=== PATIENT | male | born 1970 | race Hispanic/Latino ===

== ENCOUNTER 2019-03-08 23:44 | Emergency (ER) | payer BC ==
[2019-03-09 00:14] LABS: Basophils # (Auto) 0.1 K/mm3 (0.0-0.1); Eosinophils # (Auto) 0.1 K/mm3 (0.0-0.4); Eosinophils % (Auto) 1.7 % (0.0-4.3); Hematocrit 49.1 % (35.5-45.6); Hemoglobin 16.3 gm/dl (11.8-15.2); Lymphocytes # (Auto) 1.5 K/mm3 (1.2-5.4); Lymphocytes % (Auto) 18.6 % (13.4-35.0); Mean Corpuscular HGB Conc 33 % (32-34); Mean Corpuscular Volume 90 fl (84-94); Monocytes # (Auto) 0.5 K/mm3 (0.0-0.8); Platelet Count 250 K/mm3 (140-440); Red Blood Count 5.44 M/mm3 (3.65-5.03); Red Cell Distribution Width 13.5 % (13.2-15.2)
[2019-03-09 00:34] LABS: Albumin 5.1 g/dL (3.9-5); Calcium 10.1 mg/dL (8.4-10.2)
[2019-03-09] MEDS ORDERED: SODIUM CHLORIDE 0.9% 1000 ML 1,000 ML IV ONE (00:59)
[2019-03-09] MEDS ORDERED: HYDROmorphone 1 MG/1 ML INJ IV ONE (00:59)
[2019-03-09] MEDS ORDERED: ONDANSETRON 4 MG/2 ML INJ IV ONE (00:59)
--- NOTE | 2019-03-09 01:46 | Emergency Department Report ---
ED Abdominal Pain HPI - General Chief Complaint: Abdominal Pain Stated Complaint: RT SIDE ABD PAIN VOMITING Time Seen by Provider: 03/09/19 00:40 Source: patient Mode of arrival: Ambulatory Limitations: No Limitations - History of Present Illness Initial Comments: 48-year-old male with a past medical history of peptic ulcer disease, skin cancer treated with resection, varicocele surgery, right abdominal hernia repair as a child presents to the hospital complaints complaints of sudden onset of right lower abdominal pain. Pain was 10/10, sharp, associated nausea, vomiting, and diaphoresis. Pain is waxing and waning since 6 PM. Last urine output was 10 PM. Patient denies hematuria, dysuria, or fever. Complains of dark stools but not black stools. He has not had any coffee-ground emesis or hematemesis. Denies previous history of kidney stones. Severity scale (0 -10): 6 - Related Data Previous Rx's Medication Instructions Recorded Last Taken Type HYDROcodone/APAP 5-325 [[place] 1 each PO Q6HR PRN #25 tablet 03/09/19 Unknown Rx 5/325] Ondansetron [Zofran Odt] 4 mg PO Q8HR PRN #20 tab.rapdis 03/09/19 Unknown Rx Tamsulosin [Flomax] 0.4 mg PO QDAY #14 cap 03/09/19 Unknown Rx cephALEXin [Keflex] 500 mg PO Q6HR #28 capsule 03/09/19 Unknown Rx Allergies Allergy/AdvReac Type Severity Reaction Status Date / Time No Known Allergies Allergy Verified 03/08/19 23:49 ED Review of Systems ROS: Stated complaint: RT SIDE ABD PAIN VOMITING Other details as noted in HPI Comment: All other systems reviewed and negative ED Past Medical Hx - Past Medical History Previous Medical History?: Yes Hx of Cancer: Yes (skin removed) Additional medical history: peptic ulcers - Surgical History Past Surgical History?: Yes Additional Surgical History: skin ca. Right inguinal hernia repair as a child. Varicocele repair - Social History Smoking Status: Never Smoker Substance Use Type: None - Medications Home Medications: Home Medications Medication Instructions Recorded Confirmed Last Taken Type HYDROcodone/APAP 5-325 [[place] 1 each PO Q6HR PRN #25 tablet 03/09/19 Unknown Rx 5/325] Ondansetron [Zofran Odt] 4 mg PO Q8HR PRN #20 tab.rapdis 03/09/19 Unknown Rx Tamsulosin [Flomax] 0.4 mg PO QDAY #14 cap 03/09/19 Unknown Rx cephALEXin [Keflex] 500 mg PO Q6HR #28 capsule 03/09/19 Unknown Rx ED Physical Exam - General Limitations: No Limitations - Other Other exam information: General: No acute distress Head: Atraumatic Eyes: normal appearance ENT: Moist mucous membranes Neck: Normal appearance, no midline tenderness Chest: Clear to auscultation bilaterally CV: Regular rate and rhythm Abdomen: Soft, normal bowel sounds, mild right lower quadrant tenderness, nondistended, no rebound or guarding rectal: guaic neg brown stool Back: Normal inspection Extremity: Normal inspection infection, full range of motion, no CVA tenderness Neuro: Alert O x 3, no facial asymmetry, speech clear, no gross motor sensory deficit Psych: Appropriate behavior Skin: No rash ED Course Vital Signs 03/09/19 03/09/19 03/09/19 00:38 01:00 02:00 Temperature 96.7 F L Pulse Rate 40 L 38 L 38 L Respiratory 17 19 15 Rate Blood Pressure 129/74 121/64 Blood Pressure 139/76 [Left] O2 Sat by Pulse 100 100 99 Oximetry 03/09/19 02:31 Temperature Pulse Rate 37 L Respiratory 15 Rate Blood Pressure 124/70 Blood Pressure [Left] O2 Sat by Pulse 99 Oximetry ED Medical Decision Making - Lab Data Result diagrams: 03/08/19 23:55 03/08/19 23:55 Lab Results 03/08/19 03/08/19 03/09/19 Range/Units 23:55 23:55 01:50 WBC 8.2 (4.5-11.0) K/mm3 RBC 5.44 H (3.65-5.03) M/mm3 Hgb 16.3 H (11.8-15.2) gm/dl Hct 49.1 H (35.5-45.6) % MCV 90 (84-94) fl MCH 30 (28-32) pg MCHC 33 (32-34) % RDW 13.5 (13.2-15.2) % Plt Count 250 (140-440) K/mm3 Lymph % (Auto) 18.6 (13.4-35.0) % Green % (Auto) 6.0 (0.0-7.3) % Eos % (Auto) 1.7 (0.0-4.3) % Baso % (Auto) 1.0 (0.0-1.8) % Lymph # 1.5 (1.2-5.4) K/mm3 Green # 0.5 (0.0-0.8) K/mm3 Eos # 0.1 (0.0-0.4) K/mm3 Baso # 0.1 (0.0-0.1) K/mm3 Seg Neutrophils % 72.7 H (40.0-70.0) % Seg Neutrophils # 5.9 (1.8-7.7) K/mm3 Sodium 140 (137-145) mmol/L Potassium 3.7 (3.6-5.0) mmol/L Chloride 99.3 (98-107) mmol/L Carbon Dioxide 25 (22-30) mmol/L Anion Gap 19 mmol/L BUN 21 H (9-20) mg/dL Creatinine 1.3 (0.8-1.5) mg/dL Estimated GFR 59 ml/min BUN/Creatinine Ratio 16 % Glucose 112 H (75-100) mg/dL Calcium 10.1 (8.4-10.2) mg/dL Total Bilirubin 0.50 (0.1-1.2) mg/dL AST 29 (5-40) units/L ALT 22 (7-56) units/L Alkaline Phosphatase 68 (35-129) units/L Total Protein 7.9 (6.3-8.2) g/dL Albumin 5.1 H (3.9-5) g/dL Albumin/Globulin Ratio 1.8 % Lipase 20 (13-60) units/L Urine Color Hui (Yellow) Urine Turbidity Cloudy (Clear) Urine pH 5.0 (5.0-7.0) Ur Specific [place] 1.023 (1.003-1.030) Urine Protein 100 mg/dl (Negative) mg/dL Urine Glucose (UA) Neg (Negative) mg/dL Urine Ketones Tr (Negative) mg/dL Urine Blood Lg (Negative) Urine Nitrite Neg (Negative) Urine Bilirubin Neg (Negative) Urine Urobilinogen < 2.0 (<2.0) mg/dL Ur Leukocyte Esterase Neg (Negative) Urine WBC (Auto) 30.0 H (0.0-6.0) /HPF Urine RBC (Auto) 160.0 (0.0-6.0) /HPF U Epithel Cells (Auto) 1.0 (0-13.0) /HPF Urine Bacteria (Auto) 1+ (Negative) /HPF Calcium Oxalate Crystal Few Urine Mucus 1+ /HPF Urine Opiates Screen Urine Methadone Screen Ur Barbiturates Screen Ur Phencyclidine Scrn Ur Amphetamines Screen U Benzodiazepines Scrn Urine Cocaine Screen U Marijuana (THC) Screen Drugs of Abuse Note 03/09/19 Range/Units 01:50 WBC (4.5-11.0) K/mm3 RBC (3.65-5.03) M/mm3 Hgb (11.8-15.2) gm/dl Hct (35.5-45.6) % MCV (84-94) fl MCH (28-32) pg MCHC (32-34) % RDW (13.2-15.2) % Plt Count (140-440) K/mm3 Lymph % (Auto) (13.4-35.0) % Green % (Auto) (0.0-7.3) % Eos % (Auto) (0.0-4.3) % Baso % (Auto) (0.0-1.8) % Lymph # (1.2-5.4) K/mm3 Green # (0.0-0.8) K/mm3 Eos # (0.0-0.4) K/mm3 Baso # (0.0-0.1) K/mm3 Seg Neutrophils % (40.0-70.0) % Seg Neutrophils # (1.8-7.7) K/mm3 Sodium (137-145) mmol/L Potassium (3.6-5.0) mmol/L Chloride (98-107) mmol/L Carbon Dioxide (22-30) mmol/L Anion Gap mmol/L BUN (9-20) mg/dL Creatinine (0.8-1.5) mg/dL Estimated GFR ml/min BUN/Creatinine Ratio % Glucose (75-100) mg/dL Calcium (8.4-10.2) mg/dL Total Bilirubin (0.1-1.2) mg/dL AST (5-40) units/L ALT (7-56) units/L Alkaline Phosphatase (35-129) units/L Total Protein (6.3-8.2) g/dL Albumin (3.9-5) g/dL Albumin/Globulin Ratio % Lipase (13-60) units/L Urine Color (Yellow) Urine Turbidity (Clear) Urine pH (5.0-7.0) Ur Specific [place] (1.003-1.030) Urine Protein (Negative) mg/dL Urine Glucose (UA) (Negative) mg/dL Urine Ketones (Negative) mg/dL Urine Blood (Negative) Urine Nitrite (Negative) Urine Bilirubin (Negative) Urine Urobilinogen (<2.0) mg/dL Ur Leukocyte Esterase (Negative) Urine WBC (Auto) (0.0-6.0) /HPF Urine RBC (Auto) (0.0-6.0) /HPF U Epithel Cells (Auto) (0-13.0) /HPF Urine Bacteria (Auto) (Negative) /HPF Calcium Oxalate Crystal Urine Mucus /HPF Urine Opiates Screen Presumptive negative Urine Methadone Screen Presumptive negative Ur Barbiturates Screen Presumptive negative Ur Phencyclidine Scrn Presumptive negative Ur Amphetamines Screen Presumptive negative U Benzodiazepines Scrn Presumptive negative Urine Cocaine Screen Presumptive negative U Marijuana (THC) Screen Presumptive negative Drugs of Abuse Note Disclamer - EKG Data -: EKG Interpreted by [facility] EKG shows normal: sinus rhythm, ST-T waves (no stemi) Rate: bradycardia (39) - Radiology Data Radiology results: report reviewed (CT abdomen and pelvis: Obstructed upper right ureteral calculus 3 mm.) - Medical Decision Making Patient noted to be bradycardic. He denies lightheadedness or near syncope or medication use. EKG shows sinus bradycardia at 39 rate fluctuates between the 30s to 40s with normal blood pressure. Patient admitted to have this renal stone at the [facility] 3 mm. I informed patient's and his that the stone size is less than 5 mm so will likely pass spontaneously. Patient is however going to experience additional pain until the stone passes. Patient's urine is positive for infection and he received IV Rocephin. No signs of leukocytosis, fever, or sepsis at this point. Patient lives in [place] and is scheduled to fly out at 6 AM to [facility]. I cautioned him against traveling to another country because he is at risk for recurrent pain, vomiting, or worsening infection. If these occur patient would need to return to the hospital. Patient will also need follow-up with urology. She provided follow-up for urology here but ultimately will likely be seen in his home state. Patient will be provided a copy of labs, CT report, and CT or disc to take to his follow-up physicians also to have with him as if he decides to travel. In the meantime patient will be prescribed narcotic pain medication, nausea medication, and antibiotics. He Cannot take NSAIDs due to history of peptic ulcer disease. Patient and his may decide not to go on the trip. If this is the case they are encouraged to call their local urologist today/tomorrow to schedule an appointment within a week. - Differential Diagnosis renal colic, appendicitis, UTI Critical Care Time: No Critical care attestation.: If time is entered above; I have spent that time in minutes in the direct care of this critically ill patient, excluding procedure time. ED Disposition Clinical Impression: Renal colic on right side, UTI (urinary tract infection), Sinus bradycardia Disposition: TO HOME OR SELFCARE Is pt being admited?: No Does the pt Need Aspirin: No Condition: Stable Instructions: Urinary Tract Infection in Men (ED), Renal Colic (ED), Bradycardia (ED) Additional Instructions: Take the medication as prescribed. Follow-up with a urologist. Return if symptoms worsen as indicated by your discharge instructions. Take a copy of the results provided to your doctor for follow-up. Prescriptions: Tamsulosin [Flomax] 0.4 mg PO QDAY #14 cap cephALEXin [Keflex] 500 mg PO Q6HR #28 capsule HYDROcodone/APAP 5-325 [[place] 5/325] 1 each PO Q6HR PRN #25 tablet PRN Reason: Pain Ondansetron [Zofran Odt] 4 mg PO Q8HR PRN #20 tab.rapdis PRN Reason: Nausea And Vomiting Referrals: ISIS GARZA MD [Staff Physician] - 3-5 Days (Urology ) your, primary care doctor [Other] - 7-10 days Time of Disposition: 03:45
[2019-03-09 02:10] LABS: Bacteria,Urine 1+ /HPF (Negative); Bilirubin,Urine NEG (Negative); Blood,Urine LG (Negative); Calcium Oxalate Crystals,Urine FEW; Color,Urine Amber (Yellow); Mucus,Urine 1+ /HPF; Urobilinogen,Urine < 2.0 mg/dL (<2.0)
[2019-03-09 02:11] LABS: Amphetamine Screen,Urine PRESUMPTIVE NEGATIVE; Benzodiazepines Screen,Urine PRESUMPTIVE NEGATIVE; Cannabinoid Screen,Urine PRESUMPTIVE NEGATIVE; Cocaine Screen,Urine PRESUMPTIVE NEGATIVE; Methadone Screen,Urine PRESUMPTIVE NEGATIVE; Opiate Screen,Urine PRESUMPTIVE NEGATIVE
[2019-03-09] MEDS ORDERED: cefTRIAXone/NS 1 GM/50 ML 1 GM/50 ML BAG IV ONE (02:47)
--- NOTE | 2019-03-09 03:17 | Cat Scan Report ---
CT ABDOMEN AND PELVIS WITHOUT CONTRAST INDICATION: rlq pain, n,v CONTRAST: Without IV COMPARISON: None available. All CT scans at this location are performed using CT dose reduction for ALARA by means of automated e xposure control. FINDINGS: Lung bases are clear. No pneumoperitoneum is seen. Liver is mildly enlarged and has a lengt h of 19.3 cm. Several tiny probable cysts are seen in the liver. Spleen appears within normal limits. No other masses are seen. No evidence of bowel obstruction is noted. Appendix appears within normal. Gallbladder and bile ducts show no abnormalities. Pancreas shows no abnormalities. No free fluid is seen. No inflammatory changes are noted. No lymphadenopathy is seen. No renal calculi are seen. The right renal collecting system is moderately prominent and mild edema i s seen medially in the area of the renal pelvis and upper ureter. In the upper right ureter just belo w the ureteropelvic junction a 3 mm obstructing calculus is noted. IMPRESSION: Obstructing upper right ureteral calculus Signer Name: Art Moyer MD Signed: 03/09/2019 3:13 AM Workstation Name: [id number]
[2019-03-09 05:11] VITALS: BP 119/65
== END 2019-03-09 04:00 | disposition home or self-care (01) ==
LOC: ED 23:44
DX: N39.0 Urinary tract infection, site not specified (principal); N20.0 Calculus of kidney; R00.1 Bradycardia, unspecified; R11.2 Nausea with vomiting, unspecified; Z79.899 Other long term (current) drug therapy
CPT/HCPCS: 36415; 74176; 80053; 80307; 81001; 82271; 83690; 85025; 87086; 93005; 93010; 96361; 96365; 96375; 99284; J0696; J1170; J2405; J7030